=== PATIENT | female | born 1980 | race American Indian/Alaskan Native ===

== ENCOUNTER 2018-07-26 10:03 | Outpatient (CLI) | payer OTHER | END 2018-07-26 12:50 | disposition home or self-care (01) | LOC: NST 10:03 | DX: Z34.83 Encounter for supervision of other normal pregnancy, third trimester (principal) ==

== ENCOUNTER 2018-08-02 09:41 | Outpatient (CLI) | payer OTHER | END 2018-08-02 11:40 | disposition home or self-care (01) | LOC: NST 09:41 | DX: Z34.83 Encounter for supervision of other normal pregnancy, third trimester (principal) ==

== ENCOUNTER 2018-08-16 08:58 | Outpatient (CLI) | payer OTHER | END 2018-08-16 10:48 | disposition home or self-care (01) | LOC: NST 08:58 | DX: Z34.83 Encounter for supervision of other normal pregnancy, third trimester (principal) ==

== ENCOUNTER 2018-08-23 10:42 | Outpatient (CLI) | payer OTHER | END 2018-08-23 11:45 | disposition home or self-care (01) | LOC: NST 10:42 | DX: Z34.83 Encounter for supervision of other normal pregnancy, third trimester (principal) ==

== ENCOUNTER 2018-09-09 10:21 | Outpatient (CLI) | payer OTHER | END 2018-09-09 11:48 | disposition home or self-care (01) | LOC: NST 10:21 | DX: O24.913 Unspecified diabetes mellitus in pregnancy, third trimester (principal); O16.3 Unspecified maternal hypertension, third trimester; Z34.83 Encounter for supervision of other normal pregnancy, third trimester ==

== ENCOUNTER 2018-09-20 10:15 | Outpatient (CLI) | payer OTHER | END 2018-09-20 11:24 | disposition home or self-care (01) | LOC: NST 10:15 | DX: Z34.83 Encounter for supervision of other normal pregnancy, third trimester (principal) ==

== ENCOUNTER 2018-09-25 09:04 | Inpatient (IN) | payer OTHER ==
[~2018-09-25] VITALS: Ht 167.6 cm; Wt 4.5 kg
[2018-09-25] MEDS ORDERED: LABETALOL HCL300 MG PO (10:12)
[2018-09-25] MEDS ORDERED: ALDOMET500 MG PO (10:13)
[2018-09-25] MEDS ORDERED: PRENATAL PLUS1 EAC1 PO (10:14)
== END 2018-09-28 13:38 | DRG 788 ==
LOC: O/R 10:36 → OB/GYN 13:15 → SURG-SUITE 15:21 → OB/GYN 16:05 → SURG-SUITE 09-28 13:38
PROVIDERS: Obstetrics & Gynecology
PROC: 4A1HXCZ Monitoring of Products of Conception, Cardiac Rate, External Approach (ICD-10-PCS; 2018-09-25)
PROC: 10D00Z1 Extraction of Products of Conception, Low, Open Approach (ICD-10-PCS; principal; 2018-09-25 13:15)
DX: O13.4 Gestational [pregnancy-induced] hypertension without significant proteinuria, complicating childbirth (principal); O66.2 Obstructed labor due to unusually large fetus; Z3A.40 40 weeks gestation of pregnancy; Z37.0 Single live birth

== ENCOUNTER 2020-09-02 11:18 | Outpatient (CLI) | payer OTHER ==
[~2020-09-02 11:18] MED LIST: ALDOMET500 MG PO; LABETALOL HCL300 MG PO; PRENATAL PLUS1 EAC1 PO
== END 2020-09-02 11:19 | disposition home or self-care (01) ==
LOC: SONOGRAMA 11:18
PROVIDERS: ATTEND Pathology Anatomic Pathology
DX: E04.2 Nontoxic multinodular goiter (principal)